=== PATIENT | female | born 1960 | race Caucasian/White ===

== ENCOUNTER 2023-04-17 12:44 | Outpatient (AMB) | payer OTHER, SELFPAY ==
[2023-04-17 12:57] VITALS: BP 136/80; PULSE 73; O2SAT 97; BMI 26.9
--- NOTE | 2023-04-17 12:57 | MHC.PC.OV ---
Vital Signs 04/17/23 12:57 Height 5 ft 2 in Weight 147 lb BMI 26.9 BP 136/80 Blood Pressure Location Lt brachial Position Sitting Pulse 73 Pulse Source Pulse Oximeter Pulse Oximetry (%) 97 Oxygen Delivery Method Room Air Intake Visit Reasons: Physical Exam Intake Note: Pt is here today for PE. Allergies No Known Allergies Allergy (Verified 04/17/23 13:00) Medication List - Last Reconciled 04/17/23 by Denise Szymanski MD bisoprolol fumarate 5 mg PO DAILY 90 days clotrimazole-betamethasone 1-0.05 % 1 appl topical BID sertraline (Zoloft) 50 mg PO DAILY Tobacco use date assessed: 04/17/23 Dental Screening Dental Screen Date: 04/17/23 Did you have a dental visit in the last 12 months?: Yes Did you have a dental problem in the last 6 months where you did not have access to dental care?: No Was dental information given to patient?: Patient has dentist HPI Physical Exam HPI Details Pt presents for PE. She c/o intermittent LLQ abd pain for few weeks, not related to food intake or bowel movements. Patient denies constipation hematochezia melena. Hypertension is controlled on current medications / PFSH Medical History Normal colonoscopy Renal cell carcinoma Mass of right lung Thyroid nodule Mammogram normal HTN (hypertension) Annual physical exam Surgical History S/P hysterectomy Family History Mother Hypertension Father No problems noted. Social History Housing: House Patient Tobacco Use Status: Never used Tobacco e-Cigarette/Vaping Use: Never Used Current occupational status: employed Cognitive needs: No Hearing needs: No Vision needs: Yes Questionnaire PHQ-9 Over the last 2 weeks, how often have you been bothered by any of the following problems? 1. Little interest or pleasure in doing things: not at all 2. Feeling down, depressed, or hopeless: not at all 3. Trouble falling or staying asleep, or sleeping too much: not at all 4. Feeling tired or having little energy: not at all 5. Poor appetite or overeating: not at all 6. Feeling bad about yourself - or that you are a failure or have let yourself or your family down: not at all 7. Trouble concentrating on things, such as reading the newspaper or watching television: not at all 8. Moving or speaking so slowly that other people could have noticed. Or the opposite - being so fidgety or restless that you have been moving around a lot more than usual: not at all 9. Thoughts that you would be better off or of hurting yourself in some way: not at all Total score: 0 Depression Screening Interpretation: Negative Source: Developed by Drs. Will Bishop, Navya Reddy, Thierry Gallardo and colleagues, with an educational padilla from [employer]. Thrive Questionnaire Date Thrive assessed: 04/17/23 I am a: Patient What is your living situation today?: I have a steady place to live Within the past 12 months, did the food you bought not last and you didn't have the money to get more?: Never true Within the past 12 months, did you worry whether your food would run out before you got money to buy more?: Never true Do you have trouble paying for medicines?: No Do you have trouble getting transportation to medical appointments?: No Do you have trouble paying your heating and electricity bill?: No Do you have trouble taking care of your child, family member or friend?: No Do you have trouble with day-to-day activities such as bathing, preparing meals, shopping, managing finances, etc.?: No Are you currently unemployed and looking for a job?: No Are you interested in more education?: No AUDIT C Alcohol Use Questionnaire (AUDIT-C) 1. How often do you have a drink containing alcohol?: Never 3. How often do you have six or more drinks on one occasion?: Never Total Score: 0 JUAN-7 AMB Questionnaire JUAN-7 Date JUAN - 7 assessed: 03/06/22 Feeling nervous, anxious, or on edge: 0 = Not at all Not being able to stop or control worryin = Not at all Worrying too much about different things: 0 = Not at all Trouble relaxin = Not at all Being so restless that it is hard to sit still: 0 = Not at all Becoming easily annoyed or irritable: 0 = Not at all Feeling afraid as if something awful might happen: 0 = Not at all Total JUAN-7 score (0-4 normal; 5-9 mild; 10-14 moderate; 15-21 severe): 0 Source: Developed by Drs. Will Bishop, Navya Reddy, Thierry Gallardo and colleagues, with an educational padilla from [employer]. Review of Systems Const All systems reviewed & are unremarkable except as noted in HPI and below Reports no additional complaints ENT Reports no additional complaints Card Reports no additional complaints Resp Reports no additional complaints GI Reports no additional complaints Physical exam (Primary Care) Vital Signs: Last Vital Signs Pulse 73 04/17/23 12:57 BP 136/80 04/17/23 12:57 Pulse Ox 97 04/17/23 12:57 Oxygen Delivery Method Room Air 04/17/23 12:57 BMI result Body Mass Index 26.9 Tobacco/Smoking Status: Tobacco use Status Tobacco use date assessed 04/17/23 04/17/23 13:01 Patient Tobacco Use Status Never used Tobacco 04/17/23 13:01 e-Cigarette/Vaping Use Never Used 04/17/23 12:57 PHQ-9: PHQ-9 Score PHQ-9: Total score 0 04/17/23 13:36 Depression Screening Interpretation: Negative Thrive Assessment: Date of Thrive Assessment Date Thrive assessed 04/17/23 04/17/23 13:01 Const General: no acute distress HENMT Head: Yes normal to inspection Ears: hearing grossly normal bilaterally Mouth: Normal oral and palatal mucosa present Eyes General: appearance normal, both eyes and all related structures Neck Neck: Yes supple Resp Effort & Inspection: normal respiratory effort Auscultation: clear to auscultation bilaterally Cardio Rhythm: regular rhythm Heart sounds: S1 normal heart sound present and S2 normal heart sound present GI Inspection: Yes normal to inspection Palpation (GI): Soft to palpation and Tenderness to palpation present (GI) in the LLQ; with no rebound tenderness Percussion: Yes normal to percussion Auscultation: normal bowel sounds Assessment and Plan Assessment & Plan (1) Mass of right lung: Comment: 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 (4) Thyroid nodule: Comment: 7 mm s/p bx 2020 benign, no need for f/u Code(s): E04.1 - Nontoxic single thyroid nodule (5) HTN (hypertension): Code(s): I10 - Essential (primary) hypertension Plan: Continue bisoprolol (6) Annual physical exam: Code(s): Z00.00 - Encounter for general adult medical examination without abnormal findings Plan: Well-balanced diet regular physical activity discussed with the patient. She is up-to-date with the mammogram (7) Abdominal pain: Comment: LLQ Code(s): R10.9 - Unspecified abdominal pain Plan: Obtain abdominal/ pelvic CT to rule out renal CA recurrence Orders: Orders UA w Microscopic Today C64.9 - Malignant neoplasm of unspecified kidney, except renal pelvis, Z00.00 - Encounter for general adult medical examination without abnormal findings TSH reflex Free T4 365 Days E04.1 - Nontoxic single thyroid nodule, I10 - Essential (primary) hypertension, Z00.00 - Encounter for general adult medical examination without abnormal findings CT abdomen pelvis w IV con Today C64.9 - Malignant neoplasm of unspecified kidney, except renal pelvis, R10.9 - Unspecified abdominal pain Comprehensive [place]. Panel Fast 365 Days E04.1 - Nontoxic single thyroid nodule, I10 - Essential (primary) hypertension, Z00.00 - Encounter for general adult medical examination without abnormal findings Complete Blood Count Auto Diff 365 Days E04.1 - Nontoxic single thyroid nodule, I10 - Essential (primary) hypertension, Z00.00 - Encounter for general adult medical examination without abnormal findings Lipid Panel 365 Days E04.1 - Nontoxic single thyroid nodule, I10 - Essential (primary) hypertension, Z00.00 - Encounter for general adult medical examination without abnormal findings Vitamin D 25-OH Total 365 Days E04.1 - Nontoxic single thyroid nodule, I10 - Essential (primary) hypertension, Z00.00 - Encounter for general adult medical examination without abnormal findings Coding Level of Care Code Est Pt Prev Care 40-64y(78453) Diagnoses Mass of right lung R91.8 Normal colonoscopy Renal cell carcinoma C64.9 Thyroid nodule E04.1 HTN (hypertension) I10 Annual physical exam Z00.00 Abdominal pain R10.9
== END 2023-04-17 14:16 | disposition home or self-care (01) ==
PROVIDERS: Visit Provider Internal Medicine
DX: Z00.00 Encounter for general adult medical examination without abnormal findings (principal); C64.9 Malignant neoplasm of unspecified kidney, except renal pelvis; E04.1 Nontoxic single thyroid nodule; I10 Essential (primary) hypertension; R91.8 Other nonspecific abnormal finding of lung field; R10.9 Unspecified abdominal pain
CPT/HCPCS: 99396

== ENCOUNTER 2024-04-29 08:23 | Outpatient (AMB) | payer OTHER, SELFPAY ==
[2024-04-29 08:40] VITALS: BP 126/80; PULSE 65; O2SAT 97; BMI 26.9
--- NOTE | 2024-04-29 08:40 | A.OFFPC_ITS ---
Vital Signs 04/29/24 08:40 Height 5 ft 2 in Weight 147 lb BMI 26.9 BP 126/80 Blood Pressure Location Lt brachial Position Sitting Pulse 65 Pulse Source Pulse Oximeter Pulse Oximetry (%) 97 Oxygen Delivery Method Room Air Intake Visit Reasons: Annual PE Intake Note: Pt is here today for PE. Allergies No Known Allergies Allergy (Verified 04/29/24 08:44) Medication List - Last Reconciled 04/29/24 by Denise Szymanski MD bisoprolol fumarate 5 mg PO DAILY 90 days clotrimazole-betamethasone 1-0.05 % 1 appl topical BID sertraline (Zoloft) 50 mg PO DAILY Tobacco use date assessed: 04/29/24 Fall risk assessment: No Falls in past year Last assessed Fall Risk: 04/29/24 Dental Screening Dental Screen Date: 04/29/24 Did you have a dental visit in the last 12 months?: Yes Did you have a dental problem in the last 6 months where you did not have access to dental care?: No Was dental information given to patient?: Patient has dentist HPI Annual PE HPI Details Pt presents for PE. [facility] Medical History Normal colonoscopy Renal cell carcinoma Mass of right lung Thyroid nodule Mammogram normal HTN (hypertension) Annual physical exam Surgical History S/P hysterectomy Family History Mother Hypertension Father No problems noted. Social History Housing: House Patient Tobacco Use Status: Never used Tobacco e-Cigarette/Vaping Use: Never Used service: No Current occupational status: employed Cognitive needs: No Hearing needs: No Vision needs: Yes Questionnaire PHQ-9 Over the last 2 weeks, how often have you been bothered by any of the following problems? 1. Little interest or pleasure in doing things: not at all 2. Feeling down, depressed, or hopeless: not at all 3. Trouble falling or staying asleep, or sleeping too much: not at all 4. Feeling tired or having little energy: not at all 5. Poor appetite or overeating: not at all 6. Feeling bad about yourself - or that you are a failure or have let yourself or your family down: not at all 7. Trouble concentrating on things, such as reading the newspaper or watching television: not at all 8. Moving or speaking so slowly that other people could have noticed. Or the opposite - being so fidgety or restless that you have been moving around a lot more than usual: not at all 9. Thoughts that you would be better off or of hurting yourself in some way: not at all Total score: 0 Depression Screening Interpretation: Negative Depression Screening Done: Yes [id number] - PHQ-9 Billing: Yes Source: Developed by Drs. Will Bishop, Navya Reddy, Thierry Gallardo and colleagues, with an educational padilla from [employer]. Thrive Questionnaire Date Thrive assessed: 04/29/24 I am a: Patient What is your living situation today?: I have a steady place to live Within the past 12 months, did the food you bought not last and you didn't have the money to get more?: Never true Within the past 12 months, did you worry whether your food would run out before you got money to buy more?: Never true Do you have trouble paying for medicines?: No Do you have trouble getting transportation to medical appointments?: No Do you have trouble paying your heating and electricity bill?: No Do you have trouble taking care of your child, family member or friend?: No Do you have trouble with day-to-day activities such as bathing, preparing meals, shopping, managing finances, etc.?: No Are you currently unemployed and looking for a job?: No Are you interested in more education?: No Please select the resources that you would like help with: None Currently or been in a relationship where the following occur: No concerns reported THRIVE Score: 0 AUDIT C Alcohol Use Questionnaire (AUDIT-C) 1. How often do you have a drink containing alcohol?: Monthly or less 2. How many drinks containing alcohol do you have on a typical day when you are drinking?: 1 or 2 3. How often do you have six or more drinks on one occasion?: Never Total Score: 1 JUAN-7 AMB Questionnaire JUAN-7 Date JUAN - 7 assessed: 04/29/24 Feeling nervous, anxious, or on edge: 0 = Not at all Not being able to stop or control worryin = Not at all Worrying too much about different things: 0 = Not at all Trouble relaxin = Not at all Being so restless that it is hard to sit still: 0 = Not at all Becoming easily annoyed or irritable: 0 = Not at all Feeling afraid as if something awful might happen: 0 = Not at all Total JUAN-7 score (0-4 normal; 5-9 mild; 10-14 moderate; 15-21 severe): 0 Source: Developed by Drs. Will Bishop, Navya Reddy, Thierry Gallardo and colleagues, with an educational padilla from [employer]. JUAN-7 Assessment Billing JUAN-7 Assessment Tool: JUAN-7 Assessment 53689 Review of Systems Const All systems reviewed & are unremarkable except as noted in HPI and below Eyes Reports no additional complaints ENT Reports no additional complaints Card Reports no additional complaints Resp Reports no additional complaints GI Reports no additional complaints Reports no additional complaints Physical exam (Primary Care) Vital Signs: Last Vital Signs Pulse 65 04/29/24 08:40 BP 126/80 04/29/24 08:40 Pulse Ox 97 04/29/24 08:40 Oxygen Delivery Method Room Air 04/29/24 08:40 BMI result Body Mass Index 26.9 Tobacco/Smoking Status: Tobacco use Status Tobacco use date assessed 04/29/24 04/29/24 08:46 Patient Tobacco Use Status Never used Tobacco 04/29/24 08:40 e-Cigarette/Vaping Use Never Used 04/29/24 08:40 PHQ-9: PHQ-9 Score PHQ-9: Total score 0 04/29/24 08:48 Depression Screening Interpretation: Negative Thrive Assessment: Date of Thrive Assessment Date Thrive assessed 04/29/24 04/29/24 08:48 Currently or been in a relationship where the following occur: No concerns reported Const General: no acute distress HENMT Head: Yes normal to inspection Ears: hearing grossly normal bilaterally General nose exam: Normal external nose present Mouth: Normal oral and palatal mucosa present Throat: Yes posterior oropharynx normal Eyes General: appearance normal, both eyes and all related structures Neck Neck: Yes no lymphadenopathy and Yes supple Resp Effort & Inspection: normal respiratory effort Auscultation: clear to auscultation bilaterally Cardio Rhythm: regular rhythm Heart sounds: S1 normal heart sound present and S2 normal heart sound present GI Inspection: Yes normal to inspection Palpation (GI): Soft to palpation Percussion: Yes normal to percussion Auscultation: normal bowel sounds Coding Level of Care Code Est Pt Prev Care 40-64y(91521) Diagnoses Renal cell carcinoma C64.9 HTN (hypertension) I10 Annual physical exam Z00.00 Normal colonoscopy Additional Codes JUAN-7 Assessment Billing - JUAN-7 Assessment Tool: JUAN-7 Assessment [id number] ([id number]) Assessment & Plan Assessment & Plan (1) Renal cell carcinoma: Comment: s/p nephrectomy Code(s): C64.9 - Malignant neoplasm of unspecified kidney, except renal pelvis Category: Medical Plan: resolved (2) HTN (hypertension): Code(s): I10 - Essential (primary) hypertension Category: Medical Plan: cont med (3) Annual physical exam: Code(s): Z00.00 - Encounter for general adult medical examination without abnormal findings Category: Medical Plan: well balanced diet, regular exercise, pt will schedule mammogram, and will call with a name GI for colonoscopy (4) Normal colonoscopy: Comment: 2013 Category: Medical Plan: needs colonoscopy
== END 2024-04-29 09:45 | disposition home or self-care (01) ==
LOC: HO.HMCC 08:23
PROVIDERS: PCP Internal Medicine; Visit Provider Internal Medicine
DX: C64.9 Malignant neoplasm of unspecified kidney, except renal pelvis (principal); I10 Essential (primary) hypertension; Z00.00 Encounter for general adult medical examination without abnormal findings

== ENCOUNTER → 2024-04-29 08:23 | Outpatient (BNVA) | payer OTHER, SELFPAY | PROVIDERS: PCP Internal Medicine; Visit Provider Internal Medicine | DX: Z00.00 Encounter for general adult medical examination without abnormal findings (principal); I10 Essential (primary) hypertension; Z85.528 Personal history of other malignant neoplasm of kidney; Z79.899 Other long term (current) drug therapy; Z90.5 Acquired absence of kidney | CPT/HCPCS: 96127 ==

== ENCOUNTER 2025-05-08 08:17 | Outpatient (AMB) | payer MEDICARE, SELFPAY ==
--- NOTE | 2025-05-08 08:19 | MHC.PC.OV ---
Vital Signs 05/08/25 08:22 Height 5 ft 2 in Weight 148 lb BMI 27.1 BP 110/76 Blood Pressure Location Lt brachial Position Sitting Respiration 18 Pulse 63 Pulse Source Pulse Oximeter Temp 97.9 F Temp Source Oral Pulse Oximetry (%) 98 Oxygen Delivery Method Room Air Intake Visit Reasons: Annual PE Intake Note: Pt is here today for PE. Allergies No Known Allergies Allergy (Verified 05/08/25 08:24) Medication List - Last Reconciled 05/08/25 by Denise Szymanski MD bisoprolol fumarate 5 mg PO DAILY 90 days clotrimazole-betamethasone 1-0.05 % 1 appl topical BID sertraline (Zoloft) 50 mg PO DAILY Tobacco use date assessed: 05/08/25 Fall risk assessment: No Falls in past year Last assessed Fall Risk: 05/08/25 Dental Screening Dental Screen Date: 05/08/25 Did you have a dental visit in the last 12 months?: Yes Did you have a dental problem in the last 6 months where you did not have access to dental care?: No Was dental information given to patient?: Patient has dentist HPI Annual PE HPI Details Pt presents for PE. Her son is getting . Patient complains of chronic left knee pain worse when laying down or sitting. She denies any pain when walking. Patient denies any knee injury or joint swelling [facility] Medical History (Updated 05/08/25 @ 09:24 by Denise Szymanski MD) Normal colonoscopy Renal cell carcinoma Mass of right lung Thyroid nodule Mammogram normal HTN (hypertension) Annual physical exam Surgical History Hx of section S/P hysterectomy Family History Mother Hypertension Father No problems noted. Social History Housing: House Patient Tobacco Use Status: Never used Tobacco e-Cigarette/Vaping Use: Never Used service: No Current occupational status: employed Cognitive needs: No Hearing needs: No Vision needs: Yes Questionnaire PHQ-9 Over the last 2 weeks, how often have you been bothered by any of the following problems? 1. Little interest or pleasure in doing things: several days 2. Feeling down, depressed, or hopeless: not at all 3. Trouble falling or staying asleep, or sleeping too much: several days 4. Feeling tired or having little energy: not at all 5. Poor appetite or overeating: not at all 6. Feeling bad about yourself - or that you are a failure or have let yourself or your family down: not at all 7. Trouble concentrating on things, such as reading the newspaper or watching television: not at all 8. Moving or speaking so slowly that other people could have noticed. Or the opposite - being so fidgety or restless that you have been moving around a lot more than usual: not at all 9. Thoughts that you would be better off or of hurting yourself in some way: not at all Total score: 2 Depression Screening Interpretation: Negative Depression Screening Done: Yes 36987 - PHQ-9 Billing: Yes Source: Developed by Drs. Will Bishop, Navya Reddy, Thierry Gallardo and colleagues, with an educational padilla from [employer]. Thrive Questionnaire Date Thrive assessed: 05/08/25 I am a: Patient What is your living situation today?: I have a steady place to live Within the past 12 months, did the food you bought not last and you didn't have the money to get more?: Never true Within the past 12 months, did you worry whether your food would run out before you got money to buy more?: Never true Do you have trouble paying for medicines?: No Do you have trouble getting transportation to medical appointments?: No Do you have trouble paying your heating and electricity bill?: No Do you have trouble taking care of your child, family member or friend?: No Do you have trouble with day-to-day activities such as bathing, preparing meals, shopping, managing finances, etc.?: No Are you currently unemployed and looking for a job?: No Are you interested in more education?: No Please select the resources that you would like help with: None Currently or been in a relationship where the following occur: No concerns reported THRIVE Score: 0 AUDIT C Alcohol Use Questionnaire (AUDIT-C) 1. How often do you have a drink containing alcohol?: Never 3. How often do you have six or more drinks on one occasion?: Never Total Score: 0 JUAN-7 AMB Questionnaire JUAN-7 Date JUAN - 7 assessed: 05/08/25 Feeling nervous, anxious, or on edge: 0 = Not at all Not being able to stop or control worryin = Not at all Worrying too much about different things: 0 = Not at all Trouble relaxin = Not at all Being so restless that it is hard to sit still: 0 = Not at all Becoming easily annoyed or irritable: 0 = Not at all Feeling afraid as if something awful might happen: 0 = Not at all Total JUAN-7 score (0-4 normal; 5-9 mild; 10-14 moderate; 15-21 severe): 0 Source: Developed by Drs. Will Bishop, Navya Reddy, Thierry Gallardo and colleagues, with an educational padilla from [employer]. JUAN-7 Assessment Billing JUAN-7 Assessment Tool: JUAN-7 Assessment 58644 Review of Systems Const All systems reviewed & are unremarkable except as noted in HPI and below Eyes Reports no additional complaints ENT Reports no additional complaints Card Reports no additional complaints Resp Reports no additional complaints GI Reports no additional complaints Reports no additional complaints Physical exam (Primary Care) Vital Signs: Last Vital Signs Temp 97.9 F 05/08/25 08:22 Pulse 63 05/08/25 08:22 Resp 18 05/08/25 08:22 BP 110/76 05/08/25 08:22 Pulse Ox 98 05/08/25 08:22 Oxygen Delivery Method Room Air 05/08/25 08:22 BMI result Body Mass Index 27.1 Tobacco/Smoking Status: Tobacco use Status Tobacco use date assessed 05/08/25 05/08/25 08:29 Patient Tobacco Use Status Never used Tobacco 05/08/25 08:20 e-Cigarette/Vaping Use Never Used 05/08/25 08:20 PHQ-9: PHQ-9 Score PHQ-9: Total score 2 05/08/25 08:29 Depression Screening Interpretation: Negative Thrive Assessment: Date of Thrive Assessment Date Thrive assessed 05/08/25 05/08/25 08:29 Currently or been in a relationship where the following occur: No concerns reported Const General: no acute distress HENMT Head: Yes normal to inspection Face and sinus: Yes normal facial exam Mouth: Normal oral and palatal mucosa present Throat: Yes posterior oropharynx normal Eyes General: appearance normal, both eyes and all related structures Resp Effort & Inspection: normal respiratory effort Auscultation: clear to auscultation bilaterally Cardio Rhythm: regular rhythm Heart sounds: S1 normal heart sound present and S2 normal heart sound present GI Inspection: Yes normal to inspection Palpation (GI): Soft to palpation Percussion: Yes normal to percussion Auscultation: normal bowel sounds Extrem Other: There is a full range of motion left knee tenderness to palpation lateral aspect no soft tissue swelling erythema warmth General: Yes no clubbing, cyanosis or edema Coding Level of Care Code Est Pt Prev Care >65y(71230) Diagnoses Knee pain, left M25.562 Postmenopausal Z78.0 HTN (hypertension) I10 Mass of right lung R91.8 Annual physical exam Z00.00 Additional Codes JUAN-7 Assessment Billing - JUAN-7 Assessment Tool: JUAN-7 Assessment 60258 ([id number]) PHQ-9 - 05063 - PHQ-9 Billing: Yes ([id number]) Assessment & Plan Assessment & Plan (1) Knee pain, left: Code(s): M25.562 - Pain in left knee Category: Medical Plan: Obtain x-ray and PT was recommended but patient declined (2) Postmenopausal: Code(s): Z78.0 - Asymptomatic menopausal state Category: Medical Plan: Check DEXA (3) HTN (hypertension): Code(s): I10 - Essential (primary) hypertension Category: Medical Plan: Add 10 mg of lisinopril to bisoprolol (4) Mass of right lung: Comment: thymoma s/p resection 07/2018, annual CT for 10 yrs , f/u [facility] Code(s): R91.8 - Other nonspecific abnormal finding of lung field Category: Medical Plan: Follow-up with thoracic surgeon annually (5) Annual physical exam: Comment: s/p [facility] Code(s): Z00.00 - Encounter for general adult medical examination without abnormal findings Category: Medical Plan: Well-balanced diet regular physical activity discussed with the patient she is up-to-date with mammogram DEXA will be scheduled. Patient sent Cologuard but results are still pending Orders: Orders XR knee LT 2V Today M25.562 - Pain in left knee XR DEXA axial skeleton Today Z78.0 - Asymptomatic menopausal state Medications: New lisinopril 10 mg PO DAILY 90 tabs 0RF
[2025-05-08 08:22] VITALS: BP 110/76; PULSE 63; RESP 18; TEMP 36.6; O2SAT 98; BMI 27.1
--- OUTSIDE RECORDS SUMMARY | 2025-05-08 08:35 | XMS_ITS | Encounter Summary ---
Author Organization [facility] Address [address] [place] [address] Phone Care Team Providers Care Fisheries Manager Name Role Phone Denise Szymanski MD Primary Care Provider [phone] Encounter Details Date Type Department Care Team (Late st Contact Info) Description 11/05/2018 Procedure Pass [facility] [address] [place] [address] Social History Tobacco Use Types Packs/Day Years Used Date Smoking Tobacco: Never Assessed Comments Unknown Sex and Gender Information Value Date Recorded Sex Assigned at Not on file Legal Sex Female 1:19 PM EDT Gender Identity Not on file Sexual Orientation Not on file documented as of this encounter Plan of Treatment Not on file documented as of this encounter Visit Diagnoses Not on filedocumented in this encounter Care Teams Fisheries Manager Relationship Specialty Start Date End Date Denise Szymanski MD [address] [place] [address] PCP - General Internal Medicine 10/15/18 documented as of this encounter Additional Source Comments The information contained in this document represents components of the legal health record. It is not the complete legal health record.[facility]
--- OUTSIDE RECORDS SUMMARY | 2025-05-08 08:35 | XMS_ITS | Clinical Summary ---
Author Organization [facility] Address [address] [employer] [facility] [place] [address] [place] [phone] Phone Care Team Providers Care Beading Sawyer Name Role Phone Denise Szymanski MD Primary Care Provider [phone] Allergies No known active allergies Medications bisoprolol-hydro CHLOROthiazide (ZIAC) 2.5-6.25 mg per tablet Take 1 tablet by mouth daily. Active amoxicillin (AMOXIL) 500 MG capsule 04/26/2023 Active bisoprolol (ZEBETA) 5 MG tablet 04/25/2023 Active Active Problems Problem Noted Date Diagnosed Date Benign essential hypertension 07/17/2023 Assessment & Plan (07/17/2023 9:45 AM EST): As mentioned I asked her to increase bisoprolol to 5 mg a day this should get her to the guidelines Pure hypercholesterolemia 07/17/2023 Assessment & Plan (07/17/2023 9:54 AM EST): LDL should be less than 100 Aortic root dilatation 07/17/2023 Assessment & Plan (07/17/2023 9:54 AM EST): Only 3.5 cm this is not of a concern and she has CT scans of the chest done periodically because of her thymoma I did reassure her today Social History Tobacco Use Types Packs/Day Years Used Date Smoking Tobacco: Never Smokeless Tobacco: Never Education Answer Date Recorded Are you interested in more education? Not on navarro e 11/17/2022 Are you concerned about learning? Not on file 11/17/2022 No 11/17/2022 No 11/17/2022 Digital Access Answer Date Recorded No 12/16/2022 No 12/16/2022 Reliable internet access at home? Not on file 12/16/2022 Device with a working camera? Not on file Comments Unknown Sex and Gender Information Value Date Recorded Sex Assigned at Not on file Legal Sex Female 1:19 PM EDT Gender Identity Not on file Sexual Orientation Not on file Last Filed Vital Signs Vital Sign Reading Time Taken Comments Blood Pressure 150/88 07/17/2023 9:31 AM EST Pulse 73 07/17/2023 9:31 AM EST Temperature - - Respiratory Rate 14 10/24/2018 11:01 AM EDT Oxygen Saturation 97% 07/17/2023 9:31 AM EST Inhaled Oxygen Concentration - - Weight 68 kg (150 lb) 07/17/2023 9:31 AM EST Height 154.9 cm (5' 1 ) 07/17/2023 9:31 AM EST Body Mass Index 28.34 07/17/2023 9:31 AM EST Plan of Treatment Health Maintenance Due Date Last Done Comments Adult Td,Tdap Booster 1960 LIPID PANEL 1960 POTASSIUM LEVEL 1960 DEPRESSION SCREENING 1972 HEPATITIS C SCREENING 1978 HIV ONE-TIME SCREENING (18-6 5 YEARS) 1978 SCREENING FOR DIABETES 1995 MAMMOGRAM 2000 COLOGUARD 2005 COLONOSCOPY 2005 COLORECTAL CANCER SCREENING 2005 FIT TEST 2005 FOBT 2005 SIGMOIDOSCOPY 2005 VIRTUAL COLONOSCOPY 2005 PNEUMOCOCCAL VACCINES (50+ y ears) (1 of 1 - PCV) 2010 ZOSTER VACCINES (1 of 2) 2010 BLOOD PRESSURE 01/16/2024 07/17/2023 INFLUENZA VACCINE (#1) 2025 COVID-19 VACCINE (1 - 2024-2 6 season) 2025 OSTEOPOROSIS SCREENING INITI AL (ONE-TIME) 2025 RSV VACCINE (1 - 1-dose 75+ series) 2035 SMOKING STATUS SCREENING (On ce After 26 Yrs) Completed 07/17/2023 HEPATITIS A VACCINES Aged Out No long er eligible based on patient's age to complete this topic HIB VACCINES Aged Out No longer eligi ble based on patient's age to complete this topic MENINGOCOCCAL VACCINES (ACWY) Aged Out No longer eligible based on patient's age to complete this topic MENINGOCOCCAL VACCINES (B) Aged Out N o longer eligible based on patient's age to complete this topic Medical Devices Not on file Insurance [facility] [employer] [place] PPO UNITED PPO UNITED PPO UNITED PPO UNITED PPO Care Teams Beading Sawyer Relationship Specialty Start Date End Date Denise Szymanski MD [address] [place] [address] PCP - General Internal Medicine 10/15/18 Additional Source Comments The information contained in this document represents components of the legal health record. It is not the complete legal health record.[facility]
== END 2025-05-08 09:30 | disposition home or self-care (01) ==
LOC: HO.HMCC 08:18
PROVIDERS: PCP Internal Medicine; Visit Provider Internal Medicine
DX: Z00.00 Encounter for general adult medical examination without abnormal findings (principal); M25.562 Pain in left knee; Z78.0 Asymptomatic menopausal state; I10 Essential (primary) hypertension; R91.8 Other nonspecific abnormal finding of lung field

== ENCOUNTER → 2025-05-08 08:17 | Outpatient (BNVA) | payer MEDICARE, SELFPAY | PROVIDERS: PCP Internal Medicine; Visit Provider Internal Medicine | DX: Z00.00 Encounter for general adult medical examination without abnormal findings (principal); M25.562 Pain in left knee; G89.29 Other chronic pain; I10 Essential (primary) hypertension; R91.8 Other nonspecific abnormal finding of lung field; Z78.0 Asymptomatic menopausal state | CPT/HCPCS: 96127; 99397 ==